=== PATIENT | female | born 1995 | race Caucasian/White ===

== ENCOUNTER 2017-04-08 00:31 | Emergency (ER) | payer OTHER ==
[~2017-04-08] VITALS: Ht 165.1 cm; Wt 65.9 kg
[2017-04-08 00:34] VITALS: BP 143/89; TEMP 98.3
[2017-04-08] MEDS ORDERED: NUVARING VAG RING VG (00:36)
[2017-04-08] MEDS ORDERED: PREDNISONE20 MG PO (01:10)
[2017-04-08 01:44] VITALS: PULSE 74
== END 2017-04-08 01:44 | disposition home or self-care (01) ==
LOC: COL.ER 00:31
DX: T78.1XXA Other adverse food reactions, not elsewhere classified, initial encounter (principal); Z91.018 Allergy to other foods
CPT/HCPCS: J7512